=== PATIENT | male | born 2000 | race Caucasian/White ===

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

== ENCOUNTER 2020-01-25 13:41 | Emergency (ER) | payer OTHER ==
[~2020-01-25 13:41] MED LIST changes: +AFRI0.058; +VENTAER INH
[2020-01-25] MEDS ORDERED: NS 1,000 ML IV ONE ×2 (14:30→15:30)
[2020-01-25 15:10] LABS: BASO # 0.1 10^3/uL (0.0-0.2); BASO % 0.3 % (0.0-1.0); EOS % 0.1 % (0.0-3.0); HEMATOCRIT 39.5 % (42.0-52.0); HEMOGLOBIN 13.9 g/dl (13.5-17.5); LYMPH # 0.8 10^3/uL (1.5-5.0); LYMPH % 5.6 % (24.0-44.0); MEAN CORPUSCULAR HEMOGLOBIN 32.2 pg (27.0-33.0); MEAN CORPUSCULAR HGB CONC 35.2 g/dl (32.0-36.5); MEAN CORPUSCULAR VOLUME 91.4 fl (80.0-96.0); MONO # 0.8 10^3/uL (0.0-0.8); MONO % 5.3 % (0.0-5.0); NEUTROPHILS # 12.6 10^3/uL (1.5-8.5); NEUTROPHILS % 88.1 % (36.0-66.0); PLATELET COUNT, AUTOMATED 182 10^3/uL (150-450); RED BLOOD COUNT 4.32 10^6/uL (4.30-6.10); WHITE BLOOD COUNT 14.4 10^3/uL (4.0-10.0)
[2020-01-25 15:21] LABS: INR 1.32; PROTHROMBIN TIME 16.1 SECONDS (11.8-14.0)
[2020-01-25 15:22] LABS: PARTIAL THROMBOPLASTIN TIME 25.6 SECONDS (25.0-38.4)
[2020-01-25 15:34] LABS: ALBUMIN 3.7 GM/DL (3.2-5.2); BILIRUBIN,DIRECT 0.2 MG/DL (0.0-0.2); BILIRUBIN,TOTAL 0.5 MG/DL (0.2-1.0); TOTAL PROTEIN 6.3 GM/DL (6.4-8.2)
[2020-01-25 15:37] LABS: D-DIMER QUANT < 270 ng/ml (<500)
--- NOTE | 2020-01-25 16:32 | REP ---
CHEST SINGLE VIEW: There is no evidence of acute infiltrate. No pleural effusion is seen. The heart is normal in size. The mediastinal silhouette is unremarkable. The visualized osseous structures are intact. IMPRESSION: No acute pulmonary disease. Electronically Signed by Jose Ospina MD 01/26/2020 04:40 P
[2020-01-25 17:09] VITALS: BP 118/70
--- NOTE | 2020-01-26 09:36 | ECGEPIP ---
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
== END 2020-01-25 18:03 | disposition home or self-care (01) ==
LOC: M ED 13:41 → EDBD 13:41 → M ED 18:03
DX: I95.1 Orthostatic hypotension (principal); R00.0 Tachycardia, unspecified; F17.290 Nicotine dependence, other tobacco product, uncomplicated

== ENCOUNTER 2021-06-06 17:03 | Emergency (ER) | payer OTHER ==
[~2021-06-06] VITALS: Ht 182.9 cm; Wt 68.6 kg
--- OUTSIDE RECORDS SUMMARY | 2021-06-06 17:09 | CCD ---
Author Author [facility] Organization [facility] Address Unknown Phone Unavailable Support Name Relationship Address Phone [facility] Next Of Kin [address] [place] [address] Unavailable MORRIS JAMA Next Of Kin [address] [place] [address] Re-disclosure Warning The records that you are about to access may contain information from federally-assisted alcohol or drug abuse programs. If such information is present, then the following federally mandated warning applies: This information has been disclosed to you from records protected by federal confidentiality rules (42 CFR part 2). The federal rules prohibit you from making any further disclosure of this information unless further disclosure is expressly permitted by the written consent of the person to whom it pertains or as otherwise permitted by 42 CFR part 2. A general authorization for the release of medical or other information is NOT sufficient for this purpose. The Federal rules restrict any use of the information to criminally investigate or prosecute any alcohol or drug abuse patient.The records that you are about to access may contain highly sensitive health information, the redisclosure of which is protected by Article 27-F of the [facility] Public Health law. If you continue you may have access to information: Regarding HIV / AIDS; Provided by facilities licensed or operated by the [facility] Office of Mental Health; or Provided by the [facility] Office for People With Developmental Disabilities. If such information is present, then the following [facility] mandated warning applies: This information has been disclosed to you from confidential records which are protected by state law. State law prohibits you from making any further disclosure of this information without the specific written consent of the person to whom it pertains, or as otherwise permitted by law. Any unauthorized further disclosure in violation of state law may result in a fine or intermediate sentence or both. A general authorization for the release of medical or other information is NOT sufficient authorization for further disc losure. Encounters Encounter Providers Location Date Indications Data Source(s ) Outpatient 04/12/2021 10:22:20 PM EDT - 021 10:28:39 PM EDT [facility] ([facility]) Medications No Information Insurance Providers Payer name Policy type / Coverage type Policy ID Covered democrat ID Covered democrat's relationship to mclean Policy Mclean Plan Information FFS Self Pay [id number] Self [id number] [facility] [employer] [id number] Problems, Conditions, and Diagnoses No Information Surgeries/Procedures No Information Results No Information Social History No Information
[2021-06-06] MEDS ORDERED: NAPR-849 PO (17:13)
[2021-06-06] MEDS ORDERED: CYCL-707 PO (17:13)
[2021-06-06] MEDS ORDERED: LIDOCAINE 5% (LIDODERM) PATCH TD ONE (19:50)
[2021-06-06] MEDS ORDERED: diazePAM 5MG TABLET PO ONE (19:50)
[2021-06-06] MEDS ORDERED: KETOROLAC 60MG 2ML VIAL IM ONE (19:50)
--- OUTSIDE RECORDS SUMMARY | 2021-06-06 20:27 | CCD ---
Author Author [facility] Organization [facility] Address Unknown Phone Unavailable Support Name Relationship Address Phone [facility] Next Of Kin [address] [place] [address] Unavailable MORRIS JAMA Next Of Kin [address] [place] [address] Re-disclosure Warning The records that you [...] is protected by Article 27-F of the [facility] Public Health law. If you continue you may have access to information: Regarding HIV / AIDS; Provided by facilities licensed or operated by the [facility] Office of Mental Health; or Provided by the [facility] Office for People With Developmental Disabilities. If such information is present, then the following [facility] mandated warning applies: This information has [...] law may result in a fine or retirement sentence or both. A general authorization for the release of medical or other information is NOT sufficient authorization for further disc losure. Encounters Encounter Providers Location Date Indications Data Source(s ) Outpatient 04/12/2021 10:22:20 PM EDT - 021 10:28:39 PM EDT [facility] ([facility]) Medications No Information Insurance Providers Payer name Policy type / Coverage type Policy ID Covered republican ID Covered republican's relationship to mclean Policy M[employer] Plan Information FFS Self Pay [id number] Self [id number] [facility] [employer] [id number] Problems, Conditions, and Diagnoses No Information Surgeries/Procedures No Information Results No Information Social History No Information
--- NOTE | 2021-06-06 21:29 | REPVR ---
PROCEDURE INFORMATION: Exam: CT Lumbar Spine Without Contrast Exam date and time: 06/06/2021 8:26 PM Age: 21 years old Clinical indication: Low back pain; Additional info: Sudden onset low back pain TECHNIQUE: Imaging protocol: Computed tomography images of the lumbar spine without contrast. Axial, coronal and sagittal reformatted images were created and reviewed. Radiation optimization: All CT scans at this facility use at least one of these dose optimization techniques: automated exposure control; mA and/or kV adjustment per patient size (includes targeted exams where dose is matched to clinical indication); or iterative reconstruction. COMPARISON: No relevant prior studies available. FINDINGS: Vertebrae: Normal lumbar lordosis. Alignment anatomic. No CT evidence of acute fracture, dislocation or subluxation. Vertebral body heights maintained. Discs/Spinal canal/Neural foramina: Intervertebral disc spaces preserved. No significant spinal canal or neural foraminal stenosis. Soft tissues: Grossly unremarkable. IMPRESSION: Unremarkable examination. Electronically signed by: Antoine Rey On 06/06/2021 21:29:07 PM
[2021-06-06 22:47] VITALS: BP 129/84
[2021-06-06] MEDS ORDERED: MEDR4PAK PO (22:52)
[2021-06-07] MEDS ORDERED: **NOTE PATIENT COMMENT** MISC XX ONE (08:00)
== END 2021-06-06 23:05 | disposition home or self-care (01) ==
LOC: M ED 17:03
DX: M54.40 Lumbago with sciatica, unspecified side (principal)
CPT/HCPCS: 72131; 96372; 99283; J1885

== ENCOUNTER 2021-08-18 22:05 | Emergency (ER) | payer OTHER ==
[~2021-08-18] VITALS: Ht 182.9 cm; Wt 71.4 kg
[~2021-08-18 22:05] MED LIST changes: +CYCL-707 PO; +MEDR4PAK PO; +NAPR-849 PO
[2021-08-18] MEDS ORDERED: KETO10TAB PO (22:12)
[2021-08-18] MEDS ORDERED: NEUR100C PO (22:14)
[2021-08-18] MEDS ORDERED: GABA-1171 PO (22:14)
[2021-08-18] MEDS ORDERED: APAP325T4 PO (22:17)
[2021-08-18] MEDS ORDERED: LIDOCAINE 1% MDV 20ML VIAL SC ONE (22:40)
[2021-08-18 23:20] VITALS: BP 115/73
== END 2021-08-18 23:24 | disposition home or self-care (01) ==
LOC: M ED 22:05
DX: S61.411A Laceration without foreign body of right hand, initial encounter (principal); W26.8XXA Contact with other sharp object(s), not elsewhere classified, initial encounter; Y92.009 Unspecified place in unspecified non-institutional (private) residence as the place of occurrence of the external cause; Y93.89 Activity, other specified; Y99.9 Unspecified external cause status; Z79.899 Other long term (current) drug therapy

== ENCOUNTER 2022-04-07 12:20 | Emergency (ER) | payer OTHER ==
[~2022-04-07] VITALS: Ht 182.9 cm; Wt 72.9 kg
[~2022-04-07 12:20] MED LIST changes: -AFRI0.058; +APAP325T4 PO; +GABA-1171 PO; +KETO10TAB PO; +NEUR100C PO; +OXYM15SP2
[2022-04-07] MEDS ORDERED: KETOROLAC 30 MG/ML 1ML VIAL IV ONE (15:50)
[2022-04-07] MEDS ORDERED: NS 1,000 ML IV ONE (15:50)
[2022-04-07 16:07] LABS: BASO % 0.6 % (0.0-1.0); EOS # 0.1 10^3/uL (0.0-0.5); HEMATOCRIT 39.5 % (42.0-52.0); HEMOGLOBIN 14.5 g/dl (13.5-17.5); LYMPH % 29.7 % (24.0-44.0); MEAN CORPUSCULAR HEMOGLOBIN 32.7 pg (27.0-33.0); MEAN CORPUSCULAR VOLUME 89.2 fl (80.0-96.0); MONO # 0.6 10^3/uL (0.0-0.8); MONO % 9.4 % (2.0-8.0); NEUTROPHILS # 3.9 10^3/uL (1.5-8.5); NEUTROPHILS % 59.2 % (36.0-66.0); PLATELET COUNT, AUTOMATED 159 10^3/uL (150-450); RED BLOOD COUNT 4.43 10^6/uL (4.30-6.10); WHITE BLOOD COUNT 6.7 10^3/uL (4.0-10.0)
[2022-04-07 16:21] LABS: MONO REFLEX EBV COMP NEGATIVE (NEGATIVE)
[2022-04-07 16:22] LABS: BLOOD UREA NITROGEN 11 MG/DL (7-18); CALCIUM LEVEL 9.3 MG/DL (8.5-10.1); CARBON DIOXIDE LEVEL 29 MEQ/L (21-32); CHLORIDE LEVEL 105 MEQ/L (98-107); CREATININE FOR GFR 0.88 MG/DL (0.70-1.30); GLOMERULAR FILTRATION RATE > 60.0 (>60); GLUCOSE, FASTING 85 MG/DL (70-100); MEAN CORPUSCULAR HGB CONC 36.7 g/dl (32.0-36.5); SODIUM LEVEL 137 MEQ/L (136-145)
[2022-04-07] MEDS ORDERED: NAPR-837 PO (17:19)
[2022-04-07] MEDS ORDERED: LIDO2SOL17 PO (17:19)
[2022-04-07 17:45] VITALS: BP 118/73
[2022-04-10 16:11] LABS: EBV AB TO NUCLEAR ANTIGEN <18.0 U/mL (0.0-17.9); EBV VIRAL CAPSID AG IgG 52.5 U/mL (0.0-17.9); EBV VIRAL CAPSID AG IgM <36.0 U/mL (0.0-35.9)
== END 2022-04-07 17:48 | disposition home or self-care (01) ==
LOC: M ED 12:20
DX: R05.9 Cough, unspecified (principal); R07.0 Pain in throat; F41.9 Anxiety disorder, unspecified; Z79.899 Other long term (current) drug therapy
CPT/HCPCS: 71046; 80048; 85025; 86308; 86664; 86665; 87486; 87581; 87633; 87798; 87880; 93005; 96361; 96374; 99284; J1885